=== PATIENT | female | born 1965 | race Caucasian/White ===

== ENCOUNTER → 2020-12-19 | Outpatient (CLI) | payer MEDICAID ==
[~2020-12-19] MED LIST: ASPI81CH43; FLUT250M2 IN; PROVENTIL IN; RABE20TA19; TRAMADOL PO
== END | disposition home or self-care (01) ==
LOC: Rad HDHVI 13:49
PROVIDERS: ATTEND Internal Medicine Cardiovascular Disease
DX: I08.2 Rheumatic disorders of both aortic and tricuspid valves (principal); I11.9 Hypertensive heart disease without heart failure; I49.8 Other specified cardiac arrhythmias
CPT/HCPCS: 93306

== ENCOUNTER → 2020-12-29 | Outpatient (CLI) | payer MEDICAID ==
[~2020-12-29] VITALS: Ht 149.9 cm; Wt 59.0 kg
[~2020-12-29] MED LIST changes: +ADENOSINE 50 MG in GIVE UN-DILUTED 0 ML IV ONE; +ADENOSINE 90 MG/30 ML INJ IV ONE
== END | disposition home or self-care (01) ==
LOC: Rad HDHVI 13:14
PROVIDERS: ATTEND Internal Medicine
DX: I10 Essential (primary) hypertension (principal); R07.89 Other chest pain; R06.02 Shortness of breath; Z95.0 Presence of cardiac pacemaker
CPT/HCPCS: 78452; 93005; 96374; 96375; A9500; J0153

== ENCOUNTER 2021-01-15 15:01 | Emergency (ER) | payer MEDICAID ==
[~2021-01-15] VITALS: Ht 149.9 cm; Wt 59.0 kg
[~2021-01-15 15:01] MED LIST changes: -ADENOSINE 50 MG in GIVE UN-DILUTED 0 ML IV ONE; -ADENOSINE 90 MG/30 ML INJ IV ONE
[2021-01-15 15:02] VITALS: BP 133/61
[2021-01-15 15:44] LABS: Basophils # (auto) 0.1 10 ^3/uL (0-0.2); Basophils % (auto) 1.3 % (0.0-2.0); Eosinophils # (auto) 0.1 10 ^3/uL (0-0.8); Eosinophils % (auto) 2.1 % (0.0-7.0); Hematocrit 42.7 % (36.0-46.0); Hemoglobin 14.2 g/dL (12.2-16.2); Lymphocytes # (auto) 3.1 10 ^3/uL (0.4-5.4); Lymphocytes % (auto) 48.3 % (10.0-50.0); Mean Corpuscular Hemoglobin 32.1 pg (28.0-32.0); Mean Corpuscular Hgb Conc. 33.4 g/dL (32.0-36.0); Mean Corpuscular Volume 96.3 fL (80.0-100.0); Monocytes # (auto) 0.6 10 ^3/uL (0-1.3); Monocytes % (auto) 8.7 % (0.0-12.0); Neutrophils # (auto) 2.6 10 ^3/uL (1.6-8.6); Neutrophils % (auto) 39.6 % (37.0-80.0); Red Blood Cells 4.43 10^6/uL (4.0-5.20); Red Cell Distribution Width 13.3 % (11.8-14.3); White Blood Cell 6.5 10^3/uL (4.4-10.8)
[2021-01-15 16:15] LABS: Albumin 3.4 g/dL (3.4-5.0); Calcium 10.1 mg/dL (8.5-10.1); Potassium 3.8 mmol/L (3.5-5.1)
[2021-01-15 16:22] LABS: BUN/Creatinine Ratio 15.3; Bilirubin, Total 0.3 mg/dL (0.2-1.0); Total Protein 6.8 g/dL (6.4-8.2)
[2021-01-15 19:15] LABS: Urine Bacteria NONE SEEN /hpf (None Seen); Urine Blood Negative /uL (Negative); Urine Mucus FEW (None Seen); Urine Specific Gravity 1.023 (1.001-1.035); Urine WBC 1 /hpf (0 - 5)
[2021-01-15] MEDS ORDERED: OXYCODONE W/ ACETAMINOPHEN 5/325MG TABLET PO ONE (21:15)
== END 2021-01-15 21:20 | disposition left against medical advice (07) ==
LOC: ER 15:01
DX: R10.13 Epigastric pain (principal); R11.0 Nausea; R19.7 Diarrhea, unspecified; K21.9 Gastro-esophageal reflux disease without esophagitis; F17.210 Nicotine dependence, cigarettes, uncomplicated; Z95.0 Presence of cardiac pacemaker; Z79.82 Long term (current) use of aspirin; Z79.899 Other long term (current) drug therapy
CPT/HCPCS: 36415; 74176; 80053; 81001; 82150; 83690; 83735; 85025; 93005

== ENCOUNTER 2022-09-15 11:09 | Emergency (ER) | payer MEDICAID ==
[~2022-09-15] VITALS: Ht 152.4 cm; Wt 54.3 kg
[2022-09-15] MEDS ORDERED: MORPHINE SULFATE 4 MG/ML SYR/VIAL IM ONE (11:45)
[2022-09-15 12:07] LABS: Basophils # (auto) 0.1 10 ^3/uL (0-0.2); Basophils % (auto) 1.1 % (0.0-2.0); Eosinophils # (auto) 0.1 10 ^3/uL (0-0.8); Eosinophils % (auto) 2.2 % (0.0-7.0); Hematocrit 44.2 % (36.0-46.0); Hemoglobin 14.9 g/dL (12.2-16.2); Lymphocytes % (auto) 48.5 % (10.0-50.0); Mean Corpuscular Hemoglobin 32.7 pg (28.0-32.0); Mean Corpuscular Hgb Conc. 33.6 g/dL (32.0-36.0); Mean Corpuscular Volume 97.3 fL (80.0-100.0); Monocytes # (auto) 0.5 10 ^3/uL (0-1.3); Monocytes % (auto) 7.4 % (0.0-12.0); Neutrophils # (auto) 2.5 10 ^3/uL (1.6-8.6); Neutrophils % (auto) 40.8 % (37.0-80.0); Nucleated Red Blood Cells % 0.1 %; Red Blood Cells 4.55 10^6/uL (4.0-5.20); Red Cell Distribution Width 13.5 % (11.8-14.3); White Blood Cell 6.2 10^3/uL (4.4-10.8)
[2022-09-15 12:30] LABS: Albumin 3.6 g/dL (3.4-5.0); Calcium 8.6 mg/dL (8.5-10.1); Potassium 3.8 mmol/L (3.5-5.1)
[2022-09-15 12:32] LABS: BUN/Creatinine Ratio 11.4 (10.0-20.0); Bilirubin, Total 0.4 mg/dL (0.2-1.0); Total Protein 7.1 g/dL (6.4-8.2)
[2022-09-15] MEDS ORDERED: DICY10CA PO (12:42)
[2022-09-15] MEDS ORDERED: PANT40TA2 PO (12:42)
[2022-09-15 12:59] VITALS: BP 119/68
== END 2022-09-15 13:04 | disposition home or self-care (01) ==
LOC: ER 11:09
DX: K29.70 Gastritis, unspecified, without bleeding (principal); K21.9 Gastro-esophageal reflux disease without esophagitis; J44.9 Chronic obstructive pulmonary disease, unspecified; I50.9 Heart failure, unspecified; F15.90 Other stimulant use, unspecified, uncomplicated; F17.210 Nicotine dependence, cigarettes, uncomplicated; Z95.0 Presence of cardiac pacemaker; Z98.890 Other specified postprocedural states; Z79.82 Long term (current) use of aspirin; Z79.899 Other long term (current) drug therapy
CPT/HCPCS: 36415; 74176; 76705; 80053; 83690; 85025; 96372; 99285; J2270

== ENCOUNTER → 2022-12-08 | Day surgery (SDC) | payer MEDICAID ==
[2022-12-06 09:28] LABS: Basophils # (auto) 0.1 10 ^3/uL (0-0.2); Basophils % (auto) 1.3 % (0.0-2.0); Eosinophils # (auto) 0.4 10 ^3/uL (0-0.8); Eosinophils % (auto) 5.8 % (0.0-7.0); Hematocrit 43.8 % (36.0-46.0); Hemoglobin 14.6 g/dL (12.2-16.2); Lymphocytes # (auto) 2.5 10 ^3/uL (0.4-5.4); Lymphocytes % (auto) 39.8 % (10.0-50.0); Mean Corpuscular Hemoglobin 32.7 pg (28.0-32.0); Mean Corpuscular Hgb Conc. 33.5 g/dL (32.0-36.0); Mean Corpuscular Volume 97.6 fL (80.0-100.0); Monocytes # (auto) 0.6 10 ^3/uL (0-1.3); Monocytes % (auto) 9.9 % (0.0-12.0); Neutrophils # (auto) 2.7 10 ^3/uL (1.6-8.6); Neutrophils % (auto) 43.2 % (37.0-80.0); Nucleated Red Blood Cells % 0.1 %; Red Blood Cells 4.48 10^6/uL (4.0-5.20); Red Cell Distribution Width 13.3 % (11.8-14.3); White Blood Cell 6.3 10^3/uL (4.4-10.8)
[2022-12-06 09:39] LABS: Partial Thromboplastin Time 27.5 SEC (24.5-34.5); Prothrombin Time 10.5 sec (9.3-11.8)
[2022-12-06 11:09] LABS: Alanine Aminotransferase 10 U/L (7-40); Albumin 4.4 g/dL (3.2-4.8); Alkaline Phosphatase 53 U/L (46-116); Aspartate Aminotransferase 14 U/L (13-40); BUN/Creatinine Ratio 8.2 (10.0-20.0); Blood Urea Nitrogen 7 mg/dL (9-23); Calcium 9.6 mg/dL (8.5-10.1); Carbon Dioxide 29 mmol/L (20-30); Glucose 73 mg/dL (74-106)
[2022-12-06 11:10] LABS: Bilirubin, Total 0.7 mg/dL (0.2-1.0); Total Protein 6.8 g/dL (5.7-8.2)
[2022-12-06 11:58] LABS: Anion Gap 4 (5-15); Chloride 107 mmol/L (98-107); Potassium 4.1 mmol/L (3.5-5.1); Sodium 140 mmol/L (136-145)
[~2022-12-08] VITALS: Ht 149.9 cm; Wt 55.8 kg
[~2022-12-08] MED LIST changes: +CITA10TA8 PO; +DICY10CA PO; +FLUMAZENIL 0.1 MG/ML INJ 10ML MDV IV ONE; -FLUT250M2 IN; +GABA400C PO; +HYDR-4798 PO; +LIDOCAINE VISCOUS 2% 15ML UD ONE; +MID10T PO; +NALOXONE HCL 0.4 MG/ML VIAL ONE; -PROVENTIL IN; -RABE20TA19; +SODIUM CHLORIDE LOCK 10 ML ONE; +SUCR1TAB22 OR; -TRAMADOL PO; +diphenhdrAMINE HCL 50 MG/1 ML VL ONE
[2022-12-08 13:09] VITALS: O2SAT 100
[2022-12-08] MEDS: MIDAZOLAM HCL 5 MG/ML-1ML VIAL ONE ×3 (13:30→13:37)
[2022-12-08] MEDS: fentaNYL CITRATE 100 MCG/2 ML VL ONE ×2 (13:30→13:33)
[2022-12-08 13:42] VITALS: TEMP 98.3; O2SAT 99
[2022-12-08 14:12] VITALS: BP 109/58; PULSE 78; RESP 12; O2SAT 99
== END | disposition home or self-care (01) ==
LOC: GI 12:02
PROVIDERS: ATTEND Internal Medicine Gastroenterology
DX: R10.13 Epigastric pain (principal); K29.90 Gastroduodenitis, unspecified, without bleeding; K44.9 Diaphragmatic hernia without obstruction or gangrene; K29.80 Duodenitis without bleeding; Z98.890 Other specified postprocedural states
CPT/HCPCS: 36415; 43239; 80053; 85025; 85610; 85730; J1200; J2250; J3010; J7030

== ENCOUNTER 2023-02-09 12:44 | Day surgery (SDC) | payer MEDICAID ==
[2023-02-03 12:09] LABS: Basophils # (auto) 0.1 10 ^3/uL (0-0.2); Basophils % (auto) 1.2 % (0.0-2.0); Eosinophils # (auto) 0.3 10 ^3/uL (0-0.8); Hematocrit 40.8 % (36.0-46.0); Hemoglobin 13.7 g/dL (12.2-16.2); Lymphocytes % (auto) 44.9 % (10.0-50.0); Mean Corpuscular Hemoglobin 32.6 pg (28.0-32.0); Mean Corpuscular Hgb Conc. 33.5 g/dL (32.0-36.0); Mean Corpuscular Volume 97.4 fL (80.0-100.0); Monocytes # (auto) 0.6 10 ^3/uL (0-1.3); Monocytes % (auto) 9.5 % (0.0-12.0); Neutrophils # (auto) 2.6 10 ^3/uL (1.6-8.6); Neutrophils % (auto) 39.4 % (37.0-80.0); Red Blood Cells 4.19 10^6/uL (4.0-5.20); Red Cell Distribution Width 13.6 % (11.8-14.3); White Blood Cell 6.7 10^3/uL (4.4-10.8)
[2023-02-03 12:26] LABS: INR 0.98 (0.9-1.15); Partial Thromboplastin Time 27.5 SEC (24.5-34.5); Prothrombin Time 10.3 sec (9.3-11.8)
[2023-02-03 12:47] LABS: Alanine Aminotransferase 16 U/L (7-40); Albumin 4.3 g/dL (3.2-4.8); Alkaline Phosphatase 50 U/L (46-116); Anion Gap 4 (5-15); Aspartate Aminotransferase 20 U/L (13-40); BUN/Creatinine Ratio 9.8 (10.0-20.0); Bilirubin, Total 0.5 mg/dL (0.2-1.0); Blood Urea Nitrogen 8 mg/dL (9-23); Calcium 9.3 mg/dL (8.5-10.1); Carbon Dioxide 28 mmol/L (20-30); Chloride 106 mmol/L (98-107); Glucose 80 mg/dL (74-106); Potassium 4.4 mmol/L (3.5-5.1); Sodium 138 mmol/L (136-145); Total Protein 6.6 g/dL (5.7-8.2)
[~2023-02-09 12:44] MED LIST changes: +ALBUAER3 IN; -ASPI81CH43; +CALC-437 OR; +CITA-73 PO; -CITA10TA8 PO; -DICY10CA PO; -FLUMAZENIL 0.1 MG/ML INJ 10ML MDV IV ONE; +FLUT250M2 IN; -LIDOCAINE VISCOUS 2% 15ML UD ONE; -NALOXONE HCL 0.4 MG/ML VIAL ONE; +PANT40TA2 PO; -SODIUM CHLORIDE LOCK 10 ML ONE; -diphenhdrAMINE HCL 50 MG/1 ML VL ONE
[2023-02-09] MEDS ORDERED: SODIUM CHLORIDE LOCK 10 ML ONE (13:30)
[2023-02-09] MEDS: MIDAZOLAM HCL 5 MG/ML-1ML VIAL ONE ×3 (13:38→13:44)
[2023-02-09] MEDS: fentaNYL CITRATE 100 MCG/2 ML VL ONE ×5 (13:38→13:53)
[2023-02-09] MEDS: diphenhdrAMINE HCL 50 MG/1 ML VL ONE ×2 (13:38→13:39)
[2023-02-09 14:04] VITALS: PULSE 82; RESP 16; TEMP 98.5; O2SAT 100
[2023-02-09 14:34] VITALS: BP 115/69; PULSE 80; RESP 12; O2SAT 99
== END 2023-02-09 15:05 | disposition home or self-care (01) ==
LOC: GI 12:44
PROVIDERS: ATTEND Internal Medicine Gastroenterology
DX: R10.9 Unspecified abdominal pain (principal); Q43.8 Other specified congenital malformations of intestine; K64.0 First degree hemorrhoids; K63.5 Polyp of colon
CPT/HCPCS: 36415; 45385; 80053; 85025; 85610; 85730; 88305; J1200; J2250; J3010; J7030; 99152; 99153

== ENCOUNTER 2023-05-28 08:44 | Inpatient (IN) | payer MEDICAID ==
[~2023-05-28] VITALS: Ht 154.9 cm; Wt 58.0 kg
[~2023-05-28 08:44] MED LIST changes: -CALC-437 OR; +CALC-437 PO; -SUCR1TAB22 OR; +SUCR1TAB22 PO
[2023-05-28 09:08] LABS: Basophils # (auto) 0.1 10 ^3/uL (0-0.2); Basophils % (auto) 1.4 % (0.0-2.0); Eosinophils # (auto) 0.4 10 ^3/uL (0-0.8); Eosinophils % (auto) 6.1 % (0.0-7.0); Hematocrit 45.4 % (36.0-46.0); Hemoglobin 14.9 g/dL (12.2-16.2); Lymphocytes # (auto) 3.1 10 ^3/uL (0.4-5.4); Lymphocytes % (auto) 48.8 % (10.0-50.0); Mean Corpuscular Hgb Conc. 32.7 g/dL (32.0-36.0); Mean Corpuscular Volume 97.7 fL (80.0-100.0); Monocytes # (auto) 0.7 10 ^3/uL (0-1.3); Monocytes % (auto) 10.5 % (0.0-12.0); Neutrophils # (auto) 2.1 10 ^3/uL (1.6-8.6); Neutrophils % (auto) 33.2 % (37.0-80.0); Nucleated Red Blood Cells % 0.1 %; Red Blood Cells 4.65 10^6/uL (4.0-5.20); Red Cell Distribution Width 13.5 % (11.8-14.3); White Blood Cell 6.4 10^3/uL (4.4-10.8)
[2023-05-28 09:26] LABS: INR 0.98 (0.9-1.15); Partial Thromboplastin Time 27.9 SEC (24.5-34.5); Prothrombin Time 10.3 sec (9.3-11.8)
[2023-05-28 09:27] LABS: Alanine Aminotransferase 16 U/L (7-40); Albumin 4.4 g/dL (3.2-4.8); Alkaline Phosphatase 56 U/L (46-116); Anion Gap 5 (5-15); Aspartate Aminotransferase 19 U/L (13-40); BUN/Creatinine Ratio 11.5 (10.0-20.0); Bilirubin, Total 0.5 mg/dL (0.2-1.0); Blood Urea Nitrogen 10 mg/dL (9-23); Carbon Dioxide 26 mmol/L (20-30); Chloride 108 mmol/L (98-107); Glucose 117 mg/dL (74-106); Magnesium 1.7 mg/dL (1.6-2.6); Potassium 4.3 mmol/L (3.5-5.1); Sodium 139 mmol/L (136-145); Total Protein 6.6 g/dL (5.7-8.2)
[2023-05-28] MEDS: SODIUM CHLORIDE 0.9% 1,000 ML IV ONE ×2 (13:22→19:34)
[2023-05-28] MEDS: ASPirin 81 mg TAB PO ONE (13:22)
[2023-05-28 13:30] LABS: Urine WBC None Seen /hpf (0 - 5)
[2023-05-28] MEDS: KETOROLAC TROMETH 30 MG/ML 1ML VIAL IV ONE (13:38)
[2023-05-28 13:49] LABS: Urine Bacteria NONE SEEN /hpf (None Seen); Urine Blood Negative /uL (Negative); Urine Clarity Clear (Clear); Urine Protein, UAD Negative (Negative); Urine Specific Gravity 1.006 (1.001-1.035); Urine Urobilinogen Normal (Negative)
[2023-05-28 13:51] LABS: Urine Color Yellow (Yellow)
[2023-05-28] MEDS: IOHEXOL 350 MG/ML 100ML IJ ONE (13:58)
[2023-05-28] MEDS ORDERED: ACETAMINOPHEN 325 MG TAB PO PRN (17:00)
[2023-05-28] MEDS ORDERED: NITROGLYCERIN 0.4 MG SL TAB SL PRN (17:00)
[2023-05-28] MEDS ORDERED: MORPHINE SULFATE INJ 2 MG/ml SYRG IV PRN ×2 (17:00)
[2023-05-28 17:22] LABS: Triglycerides 81 mg/dL (< 150)
[2023-05-28 17:23] LABS: LDL Cholesterol 139 mg/dL (< 100)
[2023-05-28 17:24] LABS: Cholesterol 217 mg/dL (< 200); HDL Cholesterol 74 mg/dL (40-59)
[2023-05-28] MEDS: SUCRALFATE 1 GM TAB PO SCH (19:32)
[2023-05-28] MEDS: HYDROcodone-ACET 5/325MG TAB PO PRN (19:54)
[2023-05-28] MEDS: cefTRIAXone 1GM/50ML D5W 50 ML IV ONE (20:17)
[2023-05-28] MEDS: SODIUM CHLORIDE 0.9% 1,000 ML IV SCH (20:41)
[2023-05-28] MEDS: metroNIDAZOLE 500MG/100ML 100 ML IV ONE (20:41)
[2023-05-28] MEDS: MIDODRINE HCL 10 MG TAB PO SCH (22:00)
[2023-05-28] MEDS: GABAPENTIN 400 MG CAP PO SCH (22:55)
[2023-05-29] VITALS (9 sets, daily range): BP systolic 95–118; BP diastolic 40–75; PULSE 55–88; RESP 16–20; TEMP 97.9–98.4; O2SAT 0–98
[2023-05-29] MEDS: metroNIDAZOLE 500MG/100ML 100 ML IV SCH (05:39)
[2023-05-29 07:16] LABS: Alanine Aminotransferase 16 U/L (7-40); Albumin 3.7 g/dL (3.2-4.8); Alkaline Phosphatase 50 U/L (46-116); Anion Gap 0 (5-15); Aspartate Aminotransferase 17 U/L (13-40); BUN/Creatinine Ratio 13.8 (10.0-20.0); Blood Urea Nitrogen 12 mg/dL (9-23); Calcium 9.2 mg/dL (8.5-10.1); Carbon Dioxide 28 mmol/L (20-30); Chloride 111 mmol/L (98-107); Glucose 86 mg/dL (74-106); Potassium 3.8 mmol/L (3.5-5.1); Sodium 139 mmol/L (136-145)
[2023-05-29 07:17] LABS: Bilirubin, Total 0.4 mg/dL (0.2-1.0); Total Protein 5.6 g/dL (5.7-8.2)
[2023-05-29 07:22] LABS: Basophils # (auto) 0.1 10 ^3/uL (0-0.2); Basophils % (auto) 1.1 % (0.0-2.0); Eosinophils # (auto) 0.4 10 ^3/uL (0-0.8); Eosinophils % (auto) 5.4 % (0.0-7.0); Hemoglobin 13.4 g/dL (12.2-16.2); Lymphocytes # (auto) 3.5 10 ^3/uL (0.4-5.4); Mean Corpuscular Hemoglobin 32.4 pg (28.0-32.0); Mean Corpuscular Hgb Conc. 33.5 g/dL (32.0-36.0); Mean Corpuscular Volume 96.7 fL (80.0-100.0); Monocytes # (auto) 0.9 10 ^3/uL (0-1.3); Monocytes % (auto) 13.9 % (0.0-12.0); Neutrophils # (auto) 1.9 10 ^3/uL (1.6-8.6); Neutrophils % (auto) 27.6 % (37.0-80.0); Nucleated Red Blood Cells % 0.2 %; Red Blood Cells 4.13 10^6/uL (4.0-5.20); Red Cell Distribution Width 13.1 % (11.8-14.3); White Blood Cell 6.8 10^3/uL (4.4-10.8)
[2023-05-29] MEDS: cefTRIAXone 1GM/50ML D5W 50 ML IV SCH (09:29)
[2023-05-29] MEDS: ENOXAPARIN SOD 40 MG/0.4 ML SYRINGE SC SCH (09:29)
[2023-05-29] MEDS: CITALOPRAM HYDROBR 20 MG TAB PO SCH (09:29)
[2023-05-29] MEDS: ASPirin 81 mg TAB PO SCH (09:29)
[2023-05-29] MEDS: PANTOPRAZOLE 40 MG TAB PO SCH (09:30)
[2023-05-29] MEDS: ONDANSETRON HCL 4 MG/2 ML VIAL IV PRN (11:04)
[2023-05-29] MEDS: ATORVASTATIN 20 MG TAB PO SCH (22:19)
[2023-05-30] VITALS (7 sets, daily range): BP systolic 109–114; BP diastolic 56–64; PULSE 83–102; RESP 16–20; TEMP 97.9–98.2; O2SAT 0–98
[2023-05-30 05:37] LABS: Anion Gap 7 (5-15); Carbon Dioxide 25 mmol/L (20-30); Chloride 110 mmol/L (98-107); Potassium 3.6 mmol/L (3.5-5.1); Sodium 142 mmol/L (136-145)
[2023-05-30 05:38] LABS: Calcium 8.9 mg/dL (8.5-10.1)
[2023-05-30 05:43] LABS: BUN/Creatinine Ratio 13.9 (10.0-20.0); Blood Urea Nitrogen 10 mg/dL (9-23); Glucose 77 mg/dL (74-106)
[2023-05-30] MEDS ORDERED: MIDO5TAB4 PO (10:48)
[2023-05-30] MEDS ORDERED: GABA800T97 PO (10:48)
[2023-05-30] MEDS ORDERED: METH-1181 PO (10:55)
[2023-05-30] MEDS ORDERED: ROPI0.5T4 PO (10:55)
[2023-05-30] MEDS ORDERED: FURO20TA3 PO (10:55)
[2023-05-30] MEDS ORDERED: POTA10TA51 PO (10:55)
[2023-05-30] MEDS ORDERED: FAMO-12 PO (10:55)
[2023-05-30] MEDS ORDERED: ASPI-543 PO (10:55)
[2023-05-30 12:56] LABS: Basophils # (auto) 0.1 10 ^3/uL (0-0.2); Basophils % (auto) 2.1 % (0.0-2.0); Eosinophils # (auto) 0.1 10 ^3/uL (0-0.8); Hematocrit 38.9 % (36.0-46.0); Hemoglobin 12.8 g/dL (12.2-16.2); Lymphocytes # (auto) 2.1 10 ^3/uL (0.4-5.4); Lymphocytes % (auto) 34.4 % (10.0-50.0); Mean Corpuscular Hemoglobin 32.4 pg (28.0-32.0); Mean Corpuscular Hgb Conc. 32.9 g/dL (32.0-36.0); Mean Corpuscular Volume 98.5 fL (80.0-100.0); Monocytes # (auto) 0.5 10 ^3/uL (0-1.3); Monocytes % (auto) 8.3 % (0.0-12.0); Neutrophils # (auto) 3.2 10 ^3/uL (1.6-8.6); Neutrophils % (auto) 54.2 % (37.0-80.0); Nucleated Red Blood Cells % 0.2 %; Red Blood Cells 3.95 10^6/uL (4.0-5.20); Red Cell Distribution Width 13.2 % (11.8-14.3)
[2023-05-30 13:08] LABS: Magnesium 1.6 mg/dL (1.6-2.6)
[2023-05-31 05:00] VITALS: BP 122/73; PULSE 96; RESP 19; TEMP 98.6; O2SAT 97
[2023-05-31 06:41] LABS: Basophils # (auto) 0.1 10 ^3/uL (0-0.2); Basophils % (auto) 1.3 % (0.0-2.0); Eosinophils # (auto) 0.1 10 ^3/uL (0-0.8); Eosinophils % (auto) 2.3 % (0.0-7.0); Hematocrit 37.3 % (36.0-46.0); Hemoglobin 12.5 g/dL (12.2-16.2); Lymphocytes # (auto) 2.6 10 ^3/uL (0.4-5.4); Lymphocytes % (auto) 42.7 % (10.0-50.0); Mean Corpuscular Hemoglobin 32.8 pg (28.0-32.0); Mean Corpuscular Hgb Conc. 33.6 g/dL (32.0-36.0); Mean Corpuscular Volume 97.6 fL (80.0-100.0); Monocytes # (auto) 0.7 10 ^3/uL (0-1.3); Monocytes % (auto) 10.6 % (0.0-12.0); Neutrophils # (auto) 2.7 10 ^3/uL (1.6-8.6); Neutrophils % (auto) 43.1 % (37.0-80.0); Nucleated Red Blood Cells % 0.1 %; Red Blood Cells 3.82 10^6/uL (4.0-5.20); Red Cell Distribution Width 13.1 % (11.8-14.3); White Blood Cell 6.2 10^3/uL (4.4-10.8)
[2023-05-31 06:58] LABS: Albumin 3.4 g/dL (3.2-4.8); Alkaline Phosphatase 43 U/L (46-116); Anion Gap 7 (5-15); Aspartate Aminotransferase 16 U/L (13-40); BUN/Creatinine Ratio 15.6 (10.0-20.0); Bilirubin, Total 0.6 mg/dL (0.2-1.0); Blood Urea Nitrogen 10 mg/dL (9-23); Calcium 8.5 mg/dL (8.7-10.4); Carbon Dioxide 21 mmol/L (20-30); Chloride 111 mmol/L (98-107); Glucose 51 mg/dL (74-106); Magnesium 1.8 mg/dL (1.6-2.6); Potassium 3.8 mmol/L (3.5-5.1); Sodium 139 mmol/L (136-145); Total Protein 5.2 g/dL (5.7-8.2)
[2023-05-31 07:07] LABS: Alanine Aminotransferase < 9 U/L (7-40)
[2023-05-31 08:00] VITALS: PULSE 77; PULSE 84; RESP 16; O2SAT 97
[2023-05-31 09:00] VITALS: BP 118/68; PULSE 84; RESP 16; TEMP 97.9; O2SAT 97
[2023-05-31] MEDS ORDERED: VANCOMYCIN HCL 1000 MG VL ONE (10:44)
[2023-05-31 12:33] VITALS: BP 115/70; PULSE 85; RESP 18; TEMP 98; O2SAT 99
== END 2023-05-31 15:35 | disposition home or self-care (01) | DRG 203 ==
LOC: ER 08:44 → TELE 16:53 → TELE-WESTW 16:53
PROVIDERS: ADMIT Internal Medicine Geriatric Medicine; ATTEND Internal Medicine Geriatric Medicine
DX: M94.0 Chondrocostal junction syndrome [Tietze] (principal); N17.0 Acute kidney failure with tubular necrosis; K21.9 Gastro-esophageal reflux disease without esophagitis; E27.8 Other specified disorders of adrenal gland; I50.32 Chronic diastolic (congestive) heart failure; J44.9 Chronic obstructive pulmonary disease, unspecified; E78.5 Hyperlipidemia, unspecified; F17.210 Nicotine dependence, cigarettes, uncomplicated; N18.9 Chronic kidney disease, unspecified; F41.9 Anxiety disorder, unspecified; K83.8 Other specified diseases of biliary tract; Z95.0 Presence of cardiac pacemaker; Z82.5 Family history of asthma and other chronic lower respiratory diseases
CPT/HCPCS: 36415; 71045; 71046; 71275; 74176; 76705; 78226; 80048; 80053; 80061; 81001; 82550; 82553; 82962; 83690; 83735; 83880; 84443; 84484; 85025; 85379; 85610; 85730; 93005; 93306; 93970; G0378; J1885; J2405; J3490

== ENCOUNTER 2023-08-07 13:27 | Emergency (ER) | payer MEDICAID ==
[~2023-08-07] VITALS: Ht 157.5 cm; Wt 58.0 kg
[~2023-08-07 13:27] MED LIST changes: +ASPI-543 PO; +FAMO-12 PO; +FURO20TA3 PO; -GABA400C PO; +GABA800T97 PO; +METH-1181 PO; -MID10T PO; +MIDO5TAB4 PO; +POTA-36 PO; +ROPI0.5T26 PO; -SUCR1TAB22 PO; +SUCR1TAB31 PO
[2023-08-07 15:05] VITALS: PULSE 82; RESP 12; O2SAT 95
[2023-08-07] MEDS: LACTULOSE 20Gm/30ML SOLN PO ONE (15:10)
[2023-08-07] MEDS: FLEET ENEMA(ADULT) 135 ML PR ONE (15:10)
[2023-08-07 15:15] VITALS: TEMP 98.9
[2023-08-07 17:50] LABS: Basophils # (auto) 0.1 10 ^3/uL (0-0.2); Basophils % (auto) 0.8 % (0.0-2.0); Eosinophils # (auto) 0.3 10 ^3/uL (0-0.8); Eosinophils % (auto) 3.5 % (0.0-7.0); Hematocrit 39.6 % (36.0-46.0); Hemoglobin 13.4 g/dL (12.2-16.2); Lymphocytes # (auto) 1.8 10 ^3/uL (0.4-5.4); Lymphocytes % (auto) 23.7 % (10.0-50.0); Mean Corpuscular Hemoglobin 32.5 pg (28.0-32.0); Mean Corpuscular Hgb Conc. 33.8 g/dL (32.0-36.0); Mean Corpuscular Volume 96.1 fL (80.0-100.0); Monocytes # (auto) 0.8 10 ^3/uL (0-1.3); Monocytes % (auto) 10.6 % (0.0-12.0); Neutrophils # (auto) 4.7 10 ^3/uL (1.6-8.6); Neutrophils % (auto) 61.4 % (37.0-80.0); Red Blood Cells 4.12 10^6/uL (4.0-5.20); White Blood Cell 7.6 10^3/uL (4.4-10.8)
[2023-08-07] MEDS: HYDROmorphone HCL 2 MG/ML VL/or syr IV ONE (17:50)
[2023-08-07 18:07] LABS: Alanine Aminotransferase 18 U/L (7-40); Albumin 3.9 g/dL (3.2-4.8); Alkaline Phosphatase 61 U/L (46-116); Anion Gap 5 (5-15); Aspartate Aminotransferase 28 U/L (13-40); BUN/Creatinine Ratio 13.8 (10.0-20.0); Bilirubin, Total 0.3 mg/dL (0.2-1.0); Blood Urea Nitrogen 12 mg/dL (9-23); Calcium 9.9 mg/dL (8.7-10.4); Carbon Dioxide 29 mmol/L (20-30); Chloride 108 mmol/L (98-107); Glucose 119 mg/dL (74-106); Lipase 45 U/L (12-53); Potassium 3.9 mmol/L (3.5-5.1); Sodium 142 mmol/L (136-145); Total Protein 6.1 g/dL (5.7-8.2)
[2023-08-07 18:14] LABS: Urine Bacteria None Seen /hpf (None Seen)
[2023-08-07 18:20] LABS: Urine Amorphous Crystal FEW /hpf (None Seen); Urine Blood Negative /uL (Negative); Urine Clarity Turbid (Clear); Urine Color Light-Yellow (Yellow); Urine Mucus FEW (None Seen); Urine Protein, UAD Negative (Negative); Urine Specific Gravity 1.016 (1.001-1.035); Urine Urobilinogen Normal (Negative); Urine WBC 2 /hpf (0 - 5); Urine pH 6.5 (5.0-9.0)
[2023-08-07] MEDS ORDERED: LACT10SO3 PO (18:53)
[2023-08-07 19:08] VITALS: BP 97/49; PULSE 90; RESP 14; O2SAT 95
== END 2023-08-07 19:11 | disposition home or self-care (01) ==
LOC: ER 13:27
DX: K59.00 Constipation, unspecified (principal); J44.9 Chronic obstructive pulmonary disease, unspecified; K21.9 Gastro-esophageal reflux disease without esophagitis; F17.210 Nicotine dependence, cigarettes, uncomplicated; F12.10 Cannabis abuse, uncomplicated; Z98.51 Tubal ligation status
CPT/HCPCS: 36415; 74018; 74176; 80053; 81001; 83690; 85025; 96374; 99285; J1170

== ENCOUNTER 2023-12-28 14:46 | Emergency (ER) | payer MEDICAID ==
[~2023-12-28] VITALS: Ht 152.4 cm; Wt 58.4 kg
[~2023-12-28 14:46] MED LIST changes: +LACT10SO3 PO
[2023-12-28 18:49] LABS: Basophils # (auto) 0.1 10 ^3/uL (0-0.2); Eosinophils # (auto) 0.2 10 ^3/uL (0-0.8); Eosinophils % (auto) 3.7 % (0.0-7.0); Hematocrit 40.5 % (36.0-46.0); Hemoglobin 13.9 g/dL (12.2-16.2); Lymphocytes # (auto) 2.8 10 ^3/uL (0.4-5.4); Lymphocytes % (auto) 41.3 % (10.0-50.0); Mean Corpuscular Hemoglobin 33.8 pg (28.0-32.0); Mean Corpuscular Hgb Conc. 34.4 g/dL (32.0-36.0); Mean Corpuscular Volume 98.2 fL (80.0-100.0); Monocytes # (auto) 0.7 10 ^3/uL (0-1.3); Monocytes % (auto) 10.4 % (0.0-12.0); Neutrophils # (auto) 2.9 10 ^3/uL (1.6-8.6); Neutrophils % (auto) 43.6 % (37.0-80.0); Platelet Count (auto) 223 10^3/uL (140-450); Red Blood Cells 4.12 10^6/uL (4.0-5.20); Red Cell Distribution Width 13.6 % (11.8-14.3); White Blood Cell 6.7 10^3/uL (4.4-10.8)
[2023-12-28 18:56] LABS: Alanine Aminotransferase 19 U/L (7-40); Alkaline Phosphatase 74 U/L (46-116); Anion Gap 6 (5-15); BUN/Creatinine Ratio 8.8 (10.0-20.0); Blood Urea Nitrogen 7 mg/dL (9-23); Calcium 10.7 mg/dL (8.7-10.4); Carbon Dioxide 29 mmol/L (20-31); Chloride 106 mmol/L (98-107); Glucose 105 mg/dL (74-106); Potassium 3.7 mmol/L (3.5-5.1); Sodium 141 mmol/L (136-145)
[2023-12-28 18:57] LABS: Albumin 4.5 g/dL (3.2-4.8); Aspartate Aminotransferase 19 U/L (13-40); Bilirubin, Total 0.5 mg/dL (0.2-1.0); Total Protein 7.1 g/dL (5.7-8.2)
[2023-12-28 19:42] VITALS: TEMP 98.1
[2023-12-28] MEDS: FUROSEMIDE 40 MG/4 ML VIAL IV ONE (19:43)
[2023-12-28 20:45] LABS: Urine Bacteria None Seen /hpf (None Seen)
[2023-12-28 20:50] VITALS: BP 137/65; PULSE 94; RESP 16; O2SAT 99
[2023-12-28 20:58] LABS: Urine Amorphous Crystal FEW /hpf (None Seen); Urine Blood Negative /uL (Negative); Urine Clarity Turbid (Clear); Urine Color Colorless (Yellow); Urine Protein, UAD Negative (Negative); Urine Urobilinogen Normal (Negative); Urine WBC 7 /hpf (0 - 5); Urine WBC Clumps PRESENT /hpf (None Seen)
[2023-12-28 21:05] LABS: Amphetamine Screen, Urine Neg (NEGATIVE); Barbiturate Scree,Urine Neg (NEGATIVE); Benzodiazephine Screen, Urine Neg (NEGATIVE); Cannabinoid Screen, Urine Pos (NEGATIVE); Cocaine Screen, Urine Neg (NEGATIVE); Opiate Scree,Urine Neg (NEGATIVE); Phencyclidine Screen, Urine Neg (NEGATIVE)
== END 2023-12-28 20:55 | disposition home or self-care (01) ==
LOC: ER 14:46
DX: R22.43 Localized swelling, mass and lump, lower limb, bilateral (principal); J44.9 Chronic obstructive pulmonary disease, unspecified; K21.9 Gastro-esophageal reflux disease without esophagitis; I82.403 Acute embolism and thrombosis of unspecified deep veins of lower extremity, bilateral; F17.210 Nicotine dependence, cigarettes, uncomplicated; I50.9 Heart failure, unspecified; F12.10 Cannabis abuse, uncomplicated; Z79.51 Long term (current) use of inhaled steroids; Z79.82 Long term (current) use of aspirin; Z79.899 Other long term (current) drug therapy; Z95.0 Presence of cardiac pacemaker; Z98.51 Tubal ligation status
CPT/HCPCS: 36415; 71045; 74176; 80053; 80307; 81001; 83880; 84484; 85025; 93970; 96374; 99285; J1940